=== PATIENT | female | born 1955 | race Two or more races ===

== ENCOUNTER 2023-06-17 10:53 | Emergency (ER) | payer BC, MEDICAID ==
[~2023-06-17] VITALS: Ht 162.6 cm; Wt 124.0 kg
[2023-06-17 11:11] VITALS: O2SAT 89
[2023-06-17 11:26] LABS: BASOPHILS % 0.9 % (0.0-2.0); DIFFERENTIAL COMMENT 0; EOSINOPHILS % 0.9 % (0.0-5.0); HEMATOCRIT. 34.5 % (36.0-48.0); HEMOGLOBIN. 11.3 g/dL (12.0-16.0); MEAN CORPUSCULAR HEMOGLOBIN 24.4 pg (28.0-32.0); MEAN CORPUSCULAR HGB CONC 32.6 g/dL (31.0-37.0); MEAN CORPUSCULAR VOLUME 74.9 fL (81.0-99.0); MEAN PLATELET VOLUME 7.1 fl (7.4-10.4); MONOCYTES % 7.6 % (2.0-8.0); NEUTROPHILS % 69.6 % (40.0-76.0); PLATELET 346 x1000/uL (130-400); RED BLOOD CELL COUNT 4.61 mill/uL (4.2-5.4); RED CELL DISTRIBUTION WIDTH 14.5 % (11.6-14.6); WHITE BLOOD COUNT 5.7 x1000/uL (4.5-11.0)
[2023-06-17 11:39] LABS: CHLORIDE 99 mEq/L (98-107); POTASSIUM 3.3 mEq/L (3.5-5.1); SODIUM 133 mEq/L (136-145)
[2023-06-17 11:40] LABS: CARBON DIOXIDE 29 mEq/L (21-32)
[2023-06-17 11:45] LABS: CREATININE 0.7 mg/dL (0.6-1.0); GLUCOSE 111 mg/dL (70-105); UREA NITROGEN BLOOD 17 mg/dL (9-23)
[2023-06-17 11:57] LABS: CLARITY URINE CLEAR (CLEAR); COLOR URINE YELLOW (YELLOW); GLUCOSE URINE NEGATIVE (NEGATIVE); KETONES URINE NEGATIVE (NEGATIVE); LEUKOCYTE ESTERASE URINE TRACE (NEGATIVE); NITRITE URINE NEGATIVE (NEGATIVE); OCCULT BLOOD URINE NEGATIVE (NEGATIVE); PH URINE 6.5 (4.5-8.0); PROTEIN URINE NEGATIVE (NEGATIVE); SPECIFIC GRAVITY URINE 1.014 (1.005-1.030); UROBILINOGEN URINE 0.2 E.U./dL (0.2-1.0)
[2023-06-17 12:58] LABS: SQUAMOUS EPITHELIAL CELL URINE 1+ /lpf (RARE/1+)
[2023-06-17 12:59] LABS: BACTERIA URINE 1+
[2023-06-17 13:00] LABS: RBC URINE NONE SEEN /hpf (0-2); WBC URINE 0-2 /hpf (0-2)
[2023-06-17] MEDS: ONDANSETRON HCL 4MG TABLET PO ONE (16:53)
[2023-06-17] MEDS: FAMOTIDINE 20MG TABLET PO ONE (16:53)
[2023-06-17] MEDS: ACETAMINOPHEN 325MG TABLET PO ONE (16:53)
[2023-06-17 16:54] VITALS: BP 142/75; PULSE 86; RESP 19; TEMP 98.2
[2023-06-17] MEDS: POTASSIUM CHLORIDE 20MEQ/PACKET PO NR (17:51)
== END 2023-06-17 15:21 | disposition left against medical advice (07) ==
LOC: ER 10:53
DX: R10.31 Right lower quadrant pain (principal); J45.909 Unspecified asthma, uncomplicated; I10 Essential (primary) hypertension; M10.9 Gout, unspecified; Z98.890 Other specified postprocedural states
CPT/HCPCS: 99284; 76700; 80048; 81003; 85025; 36415; Q0162

== ENCOUNTER 2024-04-23 10:23 | Emergency (ER) | payer OTHER, MEDICAID ==
[~2024-04-23] VITALS: Ht 170.2 cm; Wt 97.5 kg
[2024-04-23 10:25] VITALS: O2SAT 100
[2024-04-23] MEDS: OXYCODONE HCL/ACETAMINOPHEN 5/325MG TABLET PO ONE (11:01)
[2024-04-23 11:02] VITALS: TEMP 36.8
[2024-04-23 11:55] LABS: CLARITY URINE CLOUDY (CLEAR); COLOR URINE YELLOW (YELLOW); GLUCOSE URINE NEGATIVE (NEGATIVE); KETONES URINE NEGATIVE (NEGATIVE); LEUKOCYTE ESTERASE URINE NEGATIVE (NEGATIVE); NITRITE URINE NEGATIVE (NEGATIVE); OCCULT BLOOD URINE NEGATIVE (NEGATIVE); PROTEIN URINE NEGATIVE (NEGATIVE); SPECIFIC GRAVITY URINE 1.008 (1.005-1.030); UROBILINOGEN URINE 0.2 E.U./dL (0.2-1.0)
[2024-04-23 12:37] LABS: SQUAMOUS EPITHELIAL CELL URINE 3+ /lpf (RARE/1+)
[2024-04-23] MEDS ORDERED: IBUP-2028 PO (12:37)
[2024-04-23 12:38] LABS: BACTERIA URINE 1+; WBC URINE 0-2 /hpf (0-2)
[2024-04-23 12:39] LABS: AMORPHOUS SEDIMENT URINE 1+ /lpf
[2024-04-23 12:40] LABS: RBC URINE NONE SEEN /hpf (0-2)
[2024-04-23 12:52] VITALS: BP 132/66; PULSE 70; RESP 14; O2SAT 98
== END 2024-04-23 13:11 | disposition home or self-care (01) ==
LOC: ER 10:23 → CANBEDREQ 12:37 → ER 13:11
DX: M54.31 Sciatica, right side (principal); M54.89 Other dorsalgia; I10 Essential (primary) hypertension; J45.909 Unspecified asthma, uncomplicated; Z79.1 Long term (current) use of non-steroidal anti-inflammatories (NSAID)
CPT/HCPCS: 72100; 81003; 99284; A4606